=== PATIENT | male | born 1960 | race Caucasian/White ===

== ENCOUNTER 2020-12-31 20:24 | Inpatient (IN) | payer OTHER ==
[~2020-12-31] VITALS: Ht 177.8 cm; Wt 91.2 kg
[2020-12-31 20:24] VITALS: BP 122/49
[2020-12-31] MEDS ORDERED: CELEXA 10 MG TA10 M1 PO (20:27)
[2020-12-31] MEDS ORDERED: AMBIEN 10 MG TA10 MG PO (20:27)
[2020-12-31] MEDS ORDERED: HYTRIN 1 MG CAP1 MG PO (20:28)
[2020-12-31 21:00] LABS: ABSOLUTE LYMPHOCYTES 0.5 thou/uL (0.8-5.3); ABSOLUTE MONOCYTES 0.3 thou/uL (0.0-1.2); BASOPHILS 0.2 %; EOSINOPHILS 0.1 %; HEMATOCRIT 46.6 % (42.0-52.0); HEMOGLOBIN 16.6 gm/dL (14.0-18.0); LYMPHOCYTES 12.8 %; MCH 32.2 pg (26.0-34.0); MCHC 35.6 g/dL (28.0-37.0); MCV 90.6 fL (80.0-100.0); MONOCYTES 6.8 %; MPV 8.4 fl. (7.2-11.1); NUCLEATED RBCS 0 /100WBC; PLATELET COUNT* 105 thou/uL (150-400); POLYS 80.1 %; RBC 5.14 mil/uL (4.50-6.00); RDW-CV 13.6 % (10.5-14.5); WBC 3.8 thou/uL (4.0-11.0)
[2020-12-31 21:09] LABS: CALCIUM 8.5 mg/dL (8.5-10.1); CREATININE 1.6 mg/dL (0.6-1.3); POTASSIUM 3.3 mmol/L (3.5-5.1)
[2020-12-31 21:20] LABS: ALBUMIN 3.2 g/dL (3.4-5.0); TOTAL BILIRUBIN 0.4 mg/dL (<0.1-1.0); TOTAL PROTEIN 7.6 g/dL (6.4-8.2)
[2021-01-01] VITALS (8 sets, daily range): BP systolic 113–154; BP diastolic 67–87
[2021-01-01] MEDS ORDERED: SEROQUEL 25 MG25 M1 PO (05:11)
--- NOTE | 2021-01-01 05:37 | NUR ---
REPORT RECIEVED FROM ER. PT ORIENTED TO ROOM, CALL LIGHT SHOWN, FALL AGREEMENT WENT OVER, PT STATED UNDERSTANDING. ADMISSION DOCUMENTED. IV PATENT, FLUIDS INFUSING. FALL PRECAUTIONS IN PLACE. ISOLATION MAINTAINED. PT ABLE TO MAKE NEEDS KNOWN. WILL CONTINUE WITH PLAN OF CARE.
--- NOTE | 2021-01-01 09:24 | EKG ---
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: MS : [id number] Requested By: Aline Montero Order Number: [id number] MD: Mustapha Chairez Measurements Intervals Romeo Rate: 74 P: 34 MA: 193 QRS: -17 QRSD: 165 T: 33 QT: 341 QTc: 379 Interpretive Statements Sinus rhythm Baseline wander in lead(s) V6 No previous ECG available for comparison Electronically Signed On 01-01-2021 9:24:20 CDT by Mustapha Chairez [email or web address] <ELECTRONICALLY SIGNED> By: Mustapha Chairez MD, [facility] 01/01/21 0924 55 55 Mustapha Chairez MD, [facility] /EPI
--- NOTE | 2021-01-01 10:34 | NUR ---
CM ASSESSMENT: PT COVID POSITIVE (12/26/20) PRIOR TO ADMIT, AND CURRENTLY UNDER ENHANCED PRECAUTIONS. PT RESIDES AT HOME WITH FAMILY. PT INDEPENDENT WITH ADL'S, AND ACTIVE. PT USES 0 DME. PT HAS 0 HX OF HH OR SNF. PT CURRENTLY ON 2L O2, AND DID NOT HAVE HOME OXYGEN PRIOR TO ADMIT. D/C PLANNING NEEDS TBD AT THIS TIME. CM WILL REMAIN AVAILABLE TO ASSIST AND FOLLOW NEEDED.
[2021-01-01 14:19] LABS: ABSOLUTE LYMPHOCYTES 0.4 thou/uL (0.8-5.3); ABSOLUTE MONOCYTES 0.2 thou/uL (0.0-1.2); BASOPHILS 0.1 %; HEMATOCRIT 40.6 % (42.0-52.0); LYMPHOCYTES 10.8 %; MCH 31.9 pg (26.0-34.0); MCHC 34.9 g/dL (28.0-37.0); MCV 91.5 fL (80.0-100.0); MONOCYTES 5.2 %; MPV 8.4 fl. (7.2-11.1); NUCLEATED RBCS 0 /100WBC; PLATELET COUNT* 103 thou/uL (150-400); POLYS 83.9 %; RBC 4.44 mil/uL (4.50-6.00); RDW-CV 13.4 % (10.5-14.5); WBC 3.6 thou/uL (4.0-11.0)
[2021-01-01 14:20] LABS: HEMOGLOBIN 14.2 gm/dL (14.0-18.0)
[2021-01-01 14:31] LABS: ALBUMIN 2.5 g/dL (3.4-5.0); CALCIUM 7.6 mg/dL (8.5-10.1); CREATININE 1.2 mg/dL (0.6-1.3); POTASSIUM 3.5 mmol/L (3.5-5.1); TOTAL BILIRUBIN 0.4 mg/dL (<0.1-1.0); TOTAL PROTEIN 6.2 g/dL (6.4-8.2)
[2021-01-02] VITALS (8 sets, daily range): BP systolic 114–138; BP diastolic 60–84
[2021-01-02 03:50] LABS: HEMATOCRIT 39.9 % (42.0-52.0); HEMOGLOBIN 14.1 gm/dL (14.0-18.0); MCH 32.4 pg (26.0-34.0); MCHC 35.2 g/dL (28.0-37.0); MCV 91.9 fL (80.0-100.0); MPV 8.5 fl. (7.2-11.1); NUCLEATED RBCS 0 /100WBC; PLATELET COUNT* 101 thou/uL (150-400); RBC 4.34 mil/uL (4.50-6.00); RDW-CV 13.6 % (10.5-14.5); WBC 4.3 thou/uL (4.0-11.0)
[2021-01-02 04:06] LABS: ALBUMIN 2.5 g/dL (3.4-5.0); CALCIUM 7.6 mg/dL (8.5-10.1); CREATININE 1.1 mg/dL (0.6-1.3); MAGNESIUM 1.9 mg/dL (1.8-2.4); TOTAL BILIRUBIN 0.5 mg/dL (<0.1-1.0)
[2021-01-02 05:40] LABS: ABSOLUTE LYMPHOCYTES 0.3 thou/uL (0.8-5.3); ABSOLUTE MONOCYTES 0.1 thou/uL (0.0-1.2); ABSOLUTE NEUTROPHILS 3.9 thou/uL (1.6-8.1); ANISOCYTOSIS 1+; PLATELET ESTIMATE DECREASED; POIKILOCYTOSIS 1+
--- NOTE | 2021-01-02 05:54 | NUR ---
PT SLEPT ON AND OFF THIS SHIFT. ASSESSMENT DOCUMENTED. MEDS GIVEN PER E-MAR. IV PATENT, FLUIDS INFUSING. FALL PRECAUTIONS IN PLACE. TYLENOL GIVEN FOT TEMP. ISOLATION MAINTAINED. PT ABLE TO MAKE NEEDS KNOWN. WILL CONTINUE WITH PLAN OF CARE.
--- NOTE | 2021-01-02 13:30 | NUR ---
PATIENT NEED FOR OXYGEN SUPPLEMT INCREASED DURING SHIFT. MD REQUESTED TRANSFER TO ICU AND TO START BIPAP. PATIENT TRANSFER TO ICU AFTER REPORT CALLED IN STABLE CONIDTION.
[2021-01-02 14:26] LABS: BE 1.2 mmol/L (-2 to +3); PCO2 36.4 mmHg (35.0-45.0); PO2 60.2 mmHg (75.0-100.0); pH 7.452 (7.340-7.450)
--- NOTE | 2021-01-02 14:58 | NUR ---
PLAN OF CARE: PHYSICIAN INFORMS OF PLAN FOR THE PT TO TX TO ICU TODAY, THE PT HAS HAD A CHANGE IN STATUS AND REQUIRES NEGATIVE PRESSURE ROOM D/T NEEDING BIPAP. PT IS COVID POSITIVE AND REMAINS UNDER ENHANCED PRECAUTIONS. CM WILL REMAIN AVAILABLE TO ASSIST AND FOLLOW NEEDED.
[2021-01-02 17:23] LABS: CALCIUM 7.9 mg/dL (8.5-10.1); CREATININE 1.3 mg/dL (0.6-1.3); MAGNESIUM 1.8 mg/dL (1.8-2.4); POTASSIUM 3.8 mmol/L (3.5-5.1)
[2021-01-03] VITALS (26 sets, daily range): BP systolic 84–138; BP diastolic 37–96
--- NOTE | 2021-01-03 04:33 | NUR ---
ASSUMED CARE AT 1900H, ON BIPAP AT 30% AND TOLERATED. PUT ON NC AT 15LPM WHILE EATING. ON PRECEDEX AND TITRATED. PT WAS ANXIOUS AND HAD PANIC ATTACK EVERYTIME BIPAP MASK PUT ON. EXPALINED TO HIM THAT HE NEEDS TO WEAR THE BIPAP. 02 SAT DECREASED AND CHANGE NC TO HEATED HIFLOW AT 55LPM 100%. 2 CON PLASMA GIVEN WITH NO REACTION. CONTINUE MONITORING AND TOWARDS GOALS.
--- NOTE | 2021-01-03 07:46 | NUR ---
OFFERED TO UPDATE FAMILY, PATIENT STATES HE TEXTED THEM. ENCOURAGED PRONE POSITIONING AND ASSISTED IN THAT POSITION AND KEEPING BIPAP ON. BRIEF DRINK OFFERED PRIOR TO PRONING. OFF BIPAP LESS THAN 45 SECONDS; DESAT TO 75%. RECOVERED <1 MINUTE >90% SPO2.
[2021-01-03 08:16] LABS: CALCIUM 8.1 mg/dL (8.5-10.1); CREATININE 1.1 mg/dL (0.6-1.3); POTASSIUM 3.9 mmol/L (3.5-5.1)
--- NOTE | 2021-01-03 10:30 | NUR ---
Spoke to son Tenzin over the phone. Tenzin is DPOA ([phone]) and plans to bring paperwork up to hospital to place on file. Called son due to patient being in COVID 19 isolation. Patient is currently on Bipap at 100% FiO2 for increased SOA and remdesevir has been ordered. Patient is from home and lives with his daughter, son and a family friend (sleeps in RV outside). House is wheelchair accessible due to 's recent health decline. Patient's recently on hospice a few months ago. Prior to admission patient was independent with ADLs and was driving and working. No hx of HH, SNF/Rehab, DME, O2, BHS, dialysis or infusion therapy, Goal is to return home at discharge. Patient may need O2 at discharge. Son made aware of possibility. CM to continue to follow for safe dc planning
--- NOTE | 2021-01-03 12:56 | NUR ---
PATIENT C/O BURNING ALL OVER, NOT "QUITE ITCHING" BUT REQUESTS BENADRYL. DR. LITTLE NOTIFIED. ORDERS RECEIVED.
--- NOTE | 2021-01-03 14:52 | NUR ---
RIGHT BASILIC VESSEL ACCESED FOR 5 [place] TRIPLE LUMEN PICC. LINE PRETRIMMED TO 45CM AND ADVANCED TO THE ZERO DWIGHT WITH NO RESISTANCE MET. UPPER ARM CIRCUMFERENCE ABOVE INSERTION SITE= 12 1/2". SHERLOCK MAGNET AND 3CG CONFIRMATION OF TIP TERMINATION AT THE CAVOATRIAL JUCNTION APPRECIATED. GUIDE WIRE REMOVED, LINE FLUSHED AND INSERTION SITE DRESSED. REPORT GIVEN TO COURTNEY NGUYEN.
--- NOTE | 2021-01-03 15:00 | NUR ---
PATIENT REMOVED BIPAP TO PUT UNDERWEAR ON. DESATED TO 54%, PLACED BACK ON BIPAP. THERAPEUTIC COMMUNICATION. PATIENT DID BECOME MORE BRADYCARDIC DURING THIS EPISODE, GOING DOWN TO 37. MAINTAINED PULSE AND CONSCIOUSNESS. PATIENT EDUCATED TO ASK FOR ASSISTANCE.
--- NOTE | 2021-01-03 17:30 | NUR ---
PATIENT NOT PROGRESSING TOWARDS GOALS. THIS AM ABLE TO DO HHF WHEN ON THE SIDE OF BED IN TRIPOD POSITION AND WHEN UP IN CHAIR. HOWEVER, HE WAS NOT ABLE TO USE HHF IN BED, ONLY BIPAP. THIS AFTERNOON, PRIOR TO DESATURATION EPISODE, UNABLE TO USE HHF EVEN WHEN IN CHAIR WITHOUT DESATURATING. PLACED ON BIPAP AND HAS REMAINED MOSTLY ON BIPAP WITH A FEW BREAKS TO HHF. HE DOES NOT MAINTAIN SATS >[address] LITTLE AWARE OF NEED TO BE ON BIPAP NOW AND DESATURATION EPISODE. MULTIPLE ORDERS RECEIVED. PATIENT REQUIRES A LOT OF THERAPEUTIC COMMUNICATION FOR HIS ANXIETY. XANAX GIVEN THIS AFTERNOON AFTER DESATURATION WITH SOME IMPROVEMENT IN ANXIETY.
[2021-01-04] VITALS (9 sets, daily range): BP systolic 102–123; BP diastolic 51–69
[2021-01-04 04:54] LABS: ABSOLUTE LYMPHOCYTES 0.3 thou/uL (0.8-5.3); ABSOLUTE MONOCYTES 0.2 thou/uL (0.0-1.2); ABSOLUTE NEUTROPHILS 6.1 thou/uL (1.6-8.1); BASOPHILS 0.2 %; HEMOGLOBIN 14.6 gm/dL (14.0-18.0); LYMPHOCYTES 4.7 %; MCH 32.1 pg (26.0-34.0); MCHC 35.7 g/dL (28.0-37.0); MCV 90.1 fL (80.0-100.0); MONOCYTES 3.2 %; MPV 9.5 fl. (7.2-11.1); NUCLEATED RBCS 0 /100WBC; PLATELET COUNT* 126 thou/uL (150-400); POLYS 91.9 %; RBC 4.55 mil/uL (4.50-6.00); RDW-CV 13.4 % (10.5-14.5); WBC 6.6 thou/uL (4.0-11.0)
[2021-01-04 05:09] LABS: CALCIUM 8.3 mg/dL (8.5-10.1); CREATININE 1.2 mg/dL (0.6-1.3); MAGNESIUM 2.4 mg/dL (1.8-2.4); POTASSIUM 3.6 mmol/L (3.5-5.1); TOTAL BILIRUBIN 0.9 mg/dL (<0.1-1.0); TOTAL PROTEIN 6.8 g/dL (6.4-8.2)
[2021-01-05] VITALS (22 sets, daily range): BP systolic 59–156; BP diastolic 31–88
--- NOTE | 2021-01-05 05:17 | NUR ---
ASSUMED CARE AT 1900H, ON BIPAP AT 100% AND TOLERATED. NO FEVER AND NO DISTRESS. STILL BRADYCARDIC WITH OFTEN PAUSES. PT SLEPT WELL IN MY SHIFT. EARLY THIS MORNING, HE WANTED TO BE IN HEATED HIFLOW BUT NOT TOLERATING IT. BACK TO BIPAP. CONTINUE MONITROING AND TOWARDS GOALS.
[2021-01-05 06:30] LABS: HEMATOCRIT 39.9 % (42.0-52.0); HEMOGLOBIN 14.2 gm/dL (14.0-18.0); MCHC 35.6 g/dL (28.0-37.0); MCV 89.9 fL (80.0-100.0); MPV 8.7 fl. (7.2-11.1); NUCLEATED RBCS 0 /100WBC; PLATELET COUNT* 130 thou/uL (150-400); RBC 4.44 mil/uL (4.50-6.00); RDW-CV 13.1 % (10.5-14.5); WBC 8.4 thou/uL (4.0-11.0)
[2021-01-05 06:41] LABS: ALBUMIN 2.7 g/dL (3.4-5.0); CALCIUM 7.9 mg/dL (8.5-10.1); CREATININE 1.1 mg/dL (0.6-1.3); POTASSIUM 4.3 mmol/L (3.5-5.1); TOTAL BILIRUBIN 1.2 mg/dL (<0.1-1.0); TOTAL PROTEIN 6.1 g/dL (6.4-8.2)
[2021-01-05 08:21] LABS: ABSOLUTE LYMPHOCYTES 0.5 thou/uL (0.8-5.3); ABSOLUTE NEUTROPHILS 7.9 thou/uL (1.6-8.1)
[2021-01-05 08:22] LABS: PLATELET ESTIMATE ADEQUATE
[2021-01-06] VITALS (20 sets, daily range): BP systolic 99–183; BP diastolic 62–130
[2021-01-06 03:37] LABS: ABSOLUTE LYMPHOCYTES 0.2 thou/uL (0.8-5.3); ABSOLUTE MONOCYTES 0.2 thou/uL (0.0-1.2); BASOPHILS 0.2 %; HEMATOCRIT 41.3 % (42.0-52.0); HEMOGLOBIN 14.9 gm/dL (14.0-18.0); LYMPHOCYTES 1.9 %; MCH 32.3 pg (26.0-34.0); MCV 89.7 fL (80.0-100.0); MONOCYTES 1.8 %; MPV 8.5 fl. (7.2-11.1); NUCLEATED RBCS 0 /100WBC; PLATELET COUNT* 121 thou/uL (150-400); POLYS 96.1 %; RBC 4.61 mil/uL (4.50-6.00); RDW-CV 13.1 % (10.5-14.5); WBC 10.4 thou/uL (4.0-11.0)
[2021-01-06 04:18] LABS: ALBUMIN 2.8 g/dL (3.4-5.0); POTASSIUM 4.5 mmol/L (3.5-5.1); TOTAL BILIRUBIN 1.2 mg/dL (<0.1-1.0)
--- NOTE | 2021-01-06 10:13 | NUR ---
ICU Rounds: Patient currently on heated hi-flow at 55L (100% FiO2). Bipap at HS. Continue abx. CM to continue to follow
[2021-01-07] VITALS (23 sets, daily range): BP systolic 87–155; BP diastolic 43–86
--- NOTE | 2021-01-07 02:16 | NUR ---
ASSUMED PATIENT CARE AT 1900. ASSESSMENT COMPLETED CHARTED. CARDIAC MONITORING IN PLACE. PATIENT REPORT GIVEN TO PATRICK BRIAN AT 2340.
[2021-01-07 04:34] LABS: CALCIUM 8.2 mg/dL (8.5-10.1); CREATININE 1.2 mg/dL (0.6-1.3); POTASSIUM 4.2 mmol/L (3.5-5.1)
[2021-01-07 04:49] LABS: HEMATOCRIT 43.4 % (42.0-52.0); HEMOGLOBIN 15.2 gm/dL (14.0-18.0); MCH 31.5 pg (26.0-34.0); MCHC 35.1 g/dL (28.0-37.0); MCV 89.7 fL (80.0-100.0); MPV 9.6 fl. (7.2-11.1); RBC 4.84 mil/uL (4.50-6.00); RDW-CV 13.1 % (10.5-14.5)
--- NOTE | 2021-01-07 06:07 | NUR ---
ASSUMED PT CARE AT APPROX. 2340. PT IS ON ENHANCED PRECAUTIONS FOR COVID+. PT IS A/OX4. IT WAS REPORTED PT IS DEPRESSED D/T 2 MONTHS AGO. PT IS TRACING SB ON CERTIFIED PHARMACIST ASSISTANT. PT IS ON BIPAP AT [facility]. SEE CHART FOR SETTINGS. PT DESATS WHEN OXYGEN IS REMOVED. PER RT PT REQUESTED TO REMOVE BIPAP AND GO BACK ON HHFNC. PT O2 SATS DROPPED TO LOW 80'S. RN EDUCATED PT ABOUT OXYGENATION. PT AGREED TO PUT BIPAP BACK ON. PT O2 SATS RANGED 90-94%. PT CURRENTLY ASLEEP IN BED. NO C/O VOICED. ASSESSMENTS COMPLETE CHARTED. MEDICATIONS ADMINISTERED PRESCRIBED. FALL PRECAUTIONS IN PLACE FOR SAFETY. WILL CONT. TO MONITOR.
--- NOTE | 2021-01-07 15:18 | NUR ---
PLAN OF CARE IS FOR PT TO CONT ON BROVANA, BIPAP PRN TO HELP MAINTAIN O2 STATS. CHEST XRAY TODAY.
--- NOTE | 2021-01-07 19:37 | NUR ---
PT DESATS WHEN LAYING DOWN IN THE BED, ENCOURAGED MOBILITY AND INCENTIVE SPIROMETRY. SAT IN THE CHAIR FOR MOST PART OF THE DAY. C/O BACKPAIN, NORCO ADDED PER ORDER, PAIN PARTIALLY RELIEVED. TOLERATING DIET. VOIDING PER URINAL AND BSC.
[2021-01-08] VITALS (22 sets, daily range): BP systolic 94–177; BP diastolic 50–100
[2021-01-08 06:03] LABS: HEMATOCRIT 41.3 % (42.0-52.0); HEMOGLOBIN 14.8 gm/dL (14.0-18.0); MCH 31.8 pg (26.0-34.0); MCHC 35.9 g/dL (28.0-37.0); MCV 88.7 fL (80.0-100.0); MPV 9.1 fl. (7.2-11.1); NUCLEATED RBCS 0 /100WBC; PLATELET COUNT* 103 thou/uL (150-400); RBC 4.65 mil/uL (4.50-6.00); RDW-CV 13.1 % (10.5-14.5); WBC 9.9 thou/uL (4.0-11.0)
[2021-01-08 06:42] LABS: ALBUMIN 3.4 g/dL (3.4-5.0); CALCIUM 8.3 mg/dL (8.5-10.1); CREATININE 0.9 mg/dL (0.6-1.3); MAGNESIUM 2.5 mg/dL (1.8-2.4); POTASSIUM 4.4 mmol/L (3.5-5.1); TOTAL BILIRUBIN 1.2 mg/dL (<0.1-1.0)
[2021-01-08 08:09] LABS: ABSOLUTE LYMPHOCYTES 0.2 thou/uL (0.8-5.3); ABSOLUTE MONOCYTES 0.2 thou/uL (0.0-1.2); ABSOLUTE NEUTROPHILS 9.5 thou/uL (1.6-8.1); PLATELET ESTIMATE ADEQUATE
--- NOTE | 2021-01-08 13:46 | NUR ---
ICU Rounds: Patient remains in COVID-19 isolation. Currently on 55L high flow NC (100% FiO2). Bipap at HS prn. Steroid taper. PT and OT ordered today. CM to continue to follow for safe dc planning
--- NOTE | 2021-01-08 18:09 | NUR ---
THIS TAP DANCER ASSUMED CARE OF PT AT 0700 PT PROGRESSED TOWARD GOAL UP TO RECLINER ABLE TO STAY OFF OF BIPAP ALL DAY ON HEATED HIGH FLOW STARTING AT 55L 100% TITRATED DOWN THROUGHOUT SHIFT 55L 85% TOLERATING WELL PT ENCOURAGED FOR ACTIVITIES AND REASSURED THAT HE IS PROGRESSIVLEY GETTING BETTER PT STATED "IT GETS LONELY AND I JUST WANT SOMEONE TO TALK WITH.: THIS TAP DANCER TOOK EXTRA TIME TO SPEND WITH PT HE WAS GRATEFUL. FRIEND DROPPED OFF SOME BELONGINGS PAIN MEDICATION GIVEN DO TO BACK AND BUTT PAIN
--- NOTE | 2021-01-08 22:13 | CON ---
[address] [address] CONSULTATION Name: DOUGSHANIQUA D Room: [address] IN M.R.#: [id number] Admission: 01/01/21 Attend Phys: Radha Larry MD Discharge: Date of : 62 Report #: [id number] THIS REPORT FOR: cc: Kush Mendoza Ghaison F. DO Pervez, Adeel MD ~ DOC #: [id number] Rik Lott MD DATE OF CONSULTATION: 01/01/2021 REQUESTING PHYSICIAN: Fabiano Boyd MD INDICATION FOR CONSULTATION: COVID-19. HISTORY OF PRESENT ILLNESS: A 60-year-old gentleman. He is a lifetime nonsmoker and does not have a history of a cardiac or respiratory disease. The patient, however, did tell me that he takes prescribed narcotics at home for various pain complaints, although this is not listed on his home medication list. The patient also takes Seroquel as well as zolpidem to help him sleep at night. He is overweight with a body mass index of 30.1. The patient is now admitted with increasing shortness of breath, cough as well as a fever. He says he has also been having chest pain. Chest pain has been associated with tightness in the chest at times. He does not have swelling of lower extremities. He does not have calf pain. He does state that he is having increasing anxiety and various pain complaints. He does have frequency of micturition, which is at baseline. The patient has a longstanding history of insomnia as well as daytime sleepiness. REVIEW OF SYSTEMS: The patient's review of systems for 12 points is negative except as mentioned above. PAST MEDICAL HISTORY: Anxiety, insomnia, use of narcotics for pain of various pain complaints, appendectomy. SOCIAL HISTORY: Lifetime nonsmoker. Only occasional alcohol use. No known history of illegal drug use. CURRENT MEDICATIONS: List in [employer] reviewed. HOME MEDICATIONS: The list, also in [employer] reviewed. In addition to zolpidem and Seroquel as well as Celexa and terazosin, which are listed on the record, he says he also takes narcotic pills for pain control at times. It is not known to me how often [place] [address] CONSULTATION Name: SHANIQUA CAMACHO Room: [address]#: [id number] Admission: 01/01/21 Attend Phys: Radha Larry MD Discharge: Date of : 62 Report #: [id number] FAMILY HISTORY: No pertinent family history known at this time. PHYSICAL EXAMINATION: GENERAL: He is alert, awake and oriented, appears to be very anxious, though. VITAL SIGNS: Has a pulse of 60 and a blood pressure of 146/83, saturating 93%. He is on 2 liters nasal cannula. Respiratory rate is mildly elevated to 20. His temperature is 37.2, but he had a high-grade fever of 38.4 yesterday. Body mass index is 30.1. HEENT: Head is normocephalic and atraumatic. Pupils are equal and reactive. There is no throat erythema. Narrow airway close to being class 4. NECK: Does not show raised JVP asymmetry, mass or lymph nodes. CHEST: Symmetrical expansion on inspection and palpation. On auscultation, breath sounds are bilaterally equal, but decreased. I do not hear any added sounds. HEART: Regular. There is no murmur. ABDOMEN: Soft and nontender. EXTREMITIES: Lower extremities show no edema and no calf tenderness. SKIN: Dry and intact. NEUROLOGIC: He does move all extremities bilaterally equally and spontaneously with no focal deficit identified. LABORATORY DATA: The patient's chest x-ray from yesterday, which does show interstitial infiltrates consistent with COVID-19 in [facility] reviewed. The patient's lab work was significant for leukopenia as well as a mild thrombocytopenia in [facility] reviewed. Initially, he also was in acute renal failure with a creatinine of 1.6. This has improved to 1.2. His D-dimer was elevated to 0.64. ASSESSMENT AND PLAN: 1. Acute hypoxemic respiratory failure secondary to COVID-19. We will watch his O2 saturations very closely. If there is a worsening oxygen needs and I will have a very low threshold of transferring him to a negative pressure room for the administration of BiPAP, in that case, we will also consider breathing treatments. He is on albuterol inhaler. He is very anxious at this time and anxiety may increase if we place him on BiPAP tonight. Therefore, for now, I did not order the same. 2. COVID-19. I will continue with dexamethasone. Considering that he has had significant issues with anxiety and insomnia, it may be desirable keep the dexamethasone on the lower side. Also, I note that he has mild leukopenia as well as mild thrombocytopenia, which are poor prognostic signs and he says that his shortness of breath, in fact, has worsened significantly since he was admitted. It is for this reason that I would go ahead and request Actemra. I understand that we are out of Actemra this evening and he will receive it tomorrow morning. I am also inclined to go ahead and give him convalescent [facility] [address] [place] [address] CONSULTATION Name: SHANIQUA CAMACHO Room: [address] IN .R.#: [id number] Admission: 01/01/21 Attend Phys: Radha Lrary MD Discharge: Date of : 62 Report #: [id number] plasma 3. Lung Infiltrates On Doxycycline 4. Thromobocytopenia + Leucopenia Still Prophy dose Lovenox, but watch Platelets Rik Lott MD AP/AVR/SOT <ELECTRONICALLY SIGNED> By: Rik Lott MD 01/08/21 2213 1744 [id number] Lott MD /nt
[2021-01-09] VITALS (11 sets, daily range): BP systolic 93–147; BP diastolic 55–102
[2021-01-09 06:18] LABS: HEMATOCRIT 41.8 % (42.0-52.0); MCH 32.1 pg (26.0-34.0); MCHC 35.7 g/dL (28.0-37.0); MCV 89.8 fL (80.0-100.0); MPV 9.3 fl. (7.2-11.1); RBC 4.66 mil/uL (4.50-6.00); RDW-CV 13.3 % (10.5-14.5); WBC 10.9 thou/uL (4.0-11.0)
[2021-01-09 06:27] LABS: CALCIUM 8.2 mg/dL (8.5-10.1); POTASSIUM 4.1 mmol/L (3.5-5.1)
--- NOTE | 2021-01-09 14:10 | NUR ---
PT TRANSFERED FROM ICU TO ROOM 106. A&OX 4, PWD. HEATED HIGH FLOW 02 95% 55L. SITTING UP IN CHAIR.
--- NOTE | 2021-01-09 14:14 | NUR ---
PT TRANSFERRED TO ROOM 106 VIA WHEELCHAIR WITH NURSING STAFF AND RT ALL BELONGINGS PACKED AND SENT WITH PATIENT
--- NOTE | 2021-01-09 19:37 | NUR ---
A&OX 4, PWD. LUNGS DIMINISHED AND SLIGHT RALES IN BASES. ON HHF 02 55L 95%. SAT UP IN CHAIR FROM 1410 UNTIL 1830 THEN WENT BACK TO BED. SB/SR ON MONITOR. AFEBRILE. LAST BM TODAY. USING URINAL WITHOUT DIFFICULTY. TRIPLE LUMEN RIGHT UPPER ARM SL INTACT AND PATENT. DID HAVE SNACK OF SHERBET AFTER ARRIVING TO FLOOR. NO C/O. WILL CONTINUE TO MONITOR.
--- NOTE | 2021-01-09 23:13 | NUR ---
ASSUMED CARE OF PT AT 1900. PT IS ALERT AND ORIENTED. VSS. PERRLA. PT IS TOLERATING BIPAP WELL AT THIS TIME. PT IS IN SINUS RYTHM ON THE TELEMETRY. PT IS RESTING COMFORTABLY IN BED. RESPIRATIONS ARE EVEN AND NONLABORED. WILL CONTINUE TO MONITOR PT.
[2021-01-10 04:03] VITALS: BP 140/78
[2021-01-10 06:06] LABS: HEMATOCRIT 40.9 % (42.0-52.0); HEMOGLOBIN 14.3 gm/dL (14.0-18.0); MCH 31.3 pg (26.0-34.0); MCHC 34.9 g/dL (28.0-37.0); MCV 89.5 fL (80.0-100.0); MPV 9.6 fl. (7.2-11.1); RBC 4.57 mil/uL (4.50-6.00); RDW-CV 13.4 % (10.5-14.5); WBC 10.3 thou/uL (4.0-11.0)
[2021-01-10 06:13] LABS: CALCIUM 8.2 mg/dL (8.5-10.1); POTASSIUM 4.4 mmol/L (3.5-5.1)
[2021-01-10 09:50] VITALS: BP 101/64
--- NOTE | 2021-01-10 13:10 | NUR ---
Nutrition: Pt admitted with COVID. Assessed for LOS. Wt: 205#. Eating well. Tolerating bipap. BG 121, alb 3.4, prealb 41.2. No nutrition concerns at this time. Low risk.
--- NOTE | 2021-01-10 15:53 | NUR ---
PLAN OF CARE: PHYSICIAN INFORMS OF PLAN FOR PT TO REMAIN INPT THRU THE WEEKEND. PT REMAINS ON BIPAP 55L O2 AND 100% FIO2. CM D/C PLANNING NEEDS TBD AT THIS TIME. CM WILL REMAIN AVAILABLE TO ASSIST AND FOLLOW NEEDED.
[2021-01-10 16:00] VITALS: BP 141/75
[2021-01-10 20:00] VITALS: BP 119/73
[2021-01-11] VITALS: BP 121/77
[2021-01-11 04:00] VITALS: BP 125/77
[2021-01-11 06:42] LABS: HEMATOCRIT 41.4 % (42.0-52.0); HEMOGLOBIN 14.5 gm/dL (14.0-18.0); MCH 31.5 pg (26.0-34.0); MCHC 35.1 g/dL (28.0-37.0); MCV 89.9 fL (80.0-100.0); MPV 9.1 fl. (7.2-11.1); RBC 4.61 mil/uL (4.50-6.00); RDW-CV 13.5 % (10.5-14.5); WBC 9.8 thou/uL (4.0-11.0)
--- NOTE | 2021-01-11 07:00 | NUR ---
CHANGE OF SHIFT REPORT GIVEN PATIENT SEEN RESTING IN BED ASSUMED PATIENT CARE
[2021-01-11 07:14] LABS: CALCIUM 8.1 mg/dL (8.5-10.1); POTASSIUM 4.5 mmol/L (3.5-5.1)
[2021-01-11 07:20] VITALS: BP 117/76
[2021-01-11 12:00] VITALS: BP 117/76
[2021-01-11 16:00] VITALS: BP 120/70
[2021-01-11 20:00] VITALS: BP 124/84
[2021-01-12] VITALS (33 sets, daily range): BP systolic 88–132; BP diastolic 53–80
[2021-01-12 05:54] LABS: HEMATOCRIT 41.1 % (42.0-52.0); HEMOGLOBIN 14.4 gm/dL (14.0-18.0); MCH 31.5 pg (26.0-34.0); MCHC 35.1 g/dL (28.0-37.0); MCV 89.8 fL (80.0-100.0); MPV 9.3 fl. (7.2-11.1); NUCLEATED RBCS 0 /100WBC; PLATELET COUNT* 54 thou/uL (150-400); RBC 4.58 mil/uL (4.50-6.00); RDW-CV 13.5 % (10.5-14.5); WBC 10.5 thou/uL (4.0-11.0)
[2021-01-12 06:10] LABS: ALBUMIN 2.9 g/dL (3.4-5.0); MAGNESIUM 2.2 mg/dL (1.8-2.4); POTASSIUM 4.3 mmol/L (3.5-5.1); TOTAL BILIRUBIN 1.1 mg/dL (<0.1-1.0); TOTAL PROTEIN 5.9 g/dL (6.4-8.2)
--- NOTE | 2021-01-12 07:15 | NUR ---
CHANGE OF SHIFT REPORT GIVEN PATIENT SEEN AT BEDSIDE, IN BED ASLEEP WITH BIPAP ON ASSUMED PATIENT CARE
[2021-01-12 08:25] LABS: ABSOLUTE EOSINOPHILS 0.2 thou/uL (0.0-0.7); ABSOLUTE LYMPHOCYTES 0.1 thou/uL (0.8-5.3); ABSOLUTE MONOCYTES 0.1 thou/uL (0.0-1.2); ABSOLUTE NEUTROPHILS 10.1 thou/uL (1.6-8.1); PLATELET ESTIMATE ADEQUATE
--- NOTE | 2021-01-12 13:10 | NUR ---
nurse notified by pvc monitor patient o2 saturation was 22% bullet lubricant mixer and rn to rm patient nonresponsive and had disconnected bipap mask hose from bipap unit bipap reconnected patient still nonresponsive and diaphoretic rr called at 1312 vital signs taken at 1318 b/p 240/132 hr 45 r 38 76% bipap safety supervisor, er dr and rt to o2 sats still low in 70s prepare to intubate medications given per dr orders intubated at 1331 vital signs taken at 1337 123/83 hr 102 r 33 59% intubated ramos catheter placed and ngt placed and 1l ns hung wo patient transferred via bed to icu and persfela hernandez sent report given to agricultural produce sorter eduardo conde called and son dallas notified of transfer to icu
[2021-01-12 16:18] LABS: ABSOLUTE EOSINOPHILS 0.1 thou/uL (0.0-0.7); ABSOLUTE LYMPHOCYTES 0.1 thou/uL (0.8-5.3); ABSOLUTE MONOCYTES 0.2 thou/uL (0.0-1.2); ABSOLUTE NEUTROPHILS 13.5 thou/uL (1.6-8.1); BASOPHILS 0.2 %; EOSINOPHILS 0.6 %; HEMOGLOBIN 14.5 gm/dL (14.0-18.0); LYMPHOCYTES 0.6 %; MCH 31.9 pg (26.0-34.0); MCHC 34.5 g/dL (28.0-37.0); MCV 92.6 fL (80.0-100.0); MONOCYTES 1.3 %; NUCLEATED RBCS 0 /100WBC; PLATELET COUNT* 51 thou/uL (150-400); POLYS 97.3 %; RBC 4.53 mil/uL (4.50-6.00); RDW-CV 13.8 % (10.5-14.5); WBC 13.8 thou/uL (4.0-11.0)
[2021-01-12 16:25] LABS: URINE BILIRUBIN NEGATIVE (Negative); URINE BLOOD 3+ (Negative); URINE CLARITY CLEAR; URINE COLOR YELLOW; URINE GLUCOSE-RANDOM NEGATIVE (Negative); URINE KETONES NEGATIVE (Negative); URINE LEUKOCYTES-REFLEX NEGATIVE (Negative); URINE NITRITE-REFLEX NEGATIVE (Negative); URINE PROTEIN TRACE (Negative); URINE SPECIFIC GRAVITY >= 1.030 (1.005-1.030); URINE UROBILINOGEN 0.2 E.U./dl (0.2-1.0)
[2021-01-12 16:30] LABS: AMORPHOUS URATES Many /LPF (None Seen); CASTS None Seen /LPF (None Seen); CRYSTALS None Seen /LPF (None Seen); SQUAMOUS 0-3 Few /LPF (0-3); URINE RBC 0-2 Rare /HPF (0-2); URINE WBC-REFLEX 6-15 Few /HPF (0-5)
[2021-01-12 16:31] LABS: APTT 23.4 Seconds (25.0-31.3); INR 1.3; PROTIME 13.4 Seconds (9.20-11.50)
[2021-01-12 17:00] LABS: BE -4.7 mmol/L (-2 to +3); PCO2 41.2 mmHg (35.0-45.0); PO2 79.6 mmHg (75.0-100.0); pH 7.325 (7.340-7.450)
[2021-01-12 17:08] LABS: ALBUMIN 2.8 g/dL (3.4-5.0); CALCIUM 7.8 mg/dL (8.5-10.1); CREATININE 1.2 mg/dL (0.6-1.3); POTASSIUM 4.9 mmol/L (3.5-5.1); TOTAL BILIRUBIN 1.1 mg/dL (<0.1-1.0)
--- NOTE | 2021-01-12 20:33 | NUR ---
PT RECEIVED FROM S AT 1400, VENTED WITH FIO2 100%. SEDATION INITIATED WITH PROPOFOL AND FENTANYL GTTs. LEVOPHED STARTED TO KEEP MAP> 65. DTR UPDATED.
[2021-01-12 20:42] LABS: CALCIUM 7.9 mg/dL (8.5-10.1); CREATININE 1.2 mg/dL (0.6-1.3); POTASSIUM 5.3 mmol/L (3.5-5.1)
[2021-01-13] VITALS (38 sets, daily range): BP systolic 108–154; BP diastolic 52–78
[2021-01-13 06:23] LABS: ABSOLUTE LYMPHOCYTES 0.1 thou/uL (0.8-5.3); ABSOLUTE MONOCYTES 0.2 thou/uL (0.0-1.2); ABSOLUTE NEUTROPHILS 10.8 thou/uL (1.6-8.1); BASOPHILS 0.1 %; HEMATOCRIT 35.8 % (42.0-52.0); MCH 31.7 pg (26.0-34.0); MCHC 34.5 g/dL (28.0-37.0); MCV 91.7 fL (80.0-100.0); MONOCYTES 2.1 %; MPV 9.6 fl. (7.2-11.1); NUCLEATED RBCS 0 /100WBC; PLATELET COUNT* 52 thou/uL (150-400); POLYS 96.8 %; RDW-CV 13.9 % (10.5-14.5); WBC 11.1 thou/uL (4.0-11.0)
[2021-01-13 06:38] LABS: HEMOGLOBIN 12.4 gm/dL (14.0-18.0)
[2021-01-13 06:39] LABS: ALBUMIN 3.6 g/dL (3.4-5.0); CALCIUM 8.2 mg/dL (8.5-10.1); CREATININE 1.1 mg/dL (0.6-1.3); MAGNESIUM 2.7 mg/dL (1.8-2.4); PHOSPHORUS* 4.1 mg/dL (2.5-4.9); POTASSIUM 4.6 mmol/L (3.5-5.1); TOTAL BILIRUBIN 1.3 mg/dL (<0.1-1.0); TOTAL PROTEIN 6.2 g/dL (6.4-8.2)
--- NOTE | 2021-01-13 07:41 | NUR ---
ASSUMED PATIENT CARE AT 1900. ASSESSMENTS COMPLETED CHARTED. CARDIAC MONITORING IN PLACE. HOURLY ROUNDING IN PLACE FOR PATIENT SAFETY. FALL PRECAUTIONS IN PLACE FOR PATIENT SAFETY. BED LOCKED AND IN LOWEST POSITION.
--- NOTE | 2021-01-13 10:03 | NUR ---
ICU Rounds: Patient intubataed 01/12 due to increased O2 needs. Vent (100% FiO2 and peep 14). Sedation, propofol and fent gtt in place.
[2021-01-13 11:43] LABS: BE -2.8 mmol/L (-2 to +3); PCO2 44.4 mmHg (35.0-45.0); pH 7.334 (7.340-7.450)
[2021-01-13 11:44] LABS: PO2 59.8 mmHg (75.0-100.0)
[2021-01-13 17:08] LABS: BE -6.3 mmol/L (-2 to +3); PCO2 42.3 mmHg (35.0-45.0); PO2 64.7 mmHg (75.0-100.0)
[2021-01-13 17:14] LABS: pH 7.291 (7.340-7.450)
[2021-01-13 17:45] LABS: CALCIUM 8.2 mg/dL (8.5-10.1); CREATININE 1.1 mg/dL (0.6-1.3); MAGNESIUM 2.7 mg/dL (1.8-2.4); POTASSIUM 4.9 mmol/L (3.5-5.1)
--- NOTE | 2021-01-13 20:03 | NUR ---
NO TUBE FEEDINGS FOR TODAY PER DR LITTLE. PT SATTING HIGH 80s TO LOW 90s WITH MAXED PROPOFOL, VERSED AND FENT GTTs. VEC 10 MG GIVEN x2 AT THE END OF THE SHIFT, PLAN TO START NIMBEX GTT AND PRONE AT NIGHT. ART LINE INSERTED THIS AM, LEVOPHED TURNED OFF AT 1252. CHILDREN UPDATED OVER THE PHONE. ALL HIS BELONGINGS TAKEN BY FAMILY (ULI).
[2021-01-13 20:31] LABS: BE -3.4 mmol/L (-2 to +3)
[2021-01-13 20:33] LABS: PCO2 50.1 mmHg (35.0-45.0); pH 7.291 (7.340-7.450)
[2021-01-13 20:34] LABS: PO2 131.5 mmHg (75.0-100.0)
[2021-01-14] VITALS (34 sets, daily range): BP systolic 110–199; BP diastolic 54–96
[2021-01-14 05:55] LABS: APTT 23.7 Seconds (25.0-31.3); INR 1.4; PROTIME 14.5 Seconds (9.20-11.50)
[2021-01-14 06:04] LABS: ABSOLUTE LYMPHOCYTES 0.1 thou/uL (0.8-5.3); ABSOLUTE MONOCYTES 0.1 thou/uL (0.0-1.2); ABSOLUTE NEUTROPHILS 7.8 thou/uL (1.6-8.1); BASOPHILS 0.4 %; EOSINOPHILS 0.1 %; HEMATOCRIT 35.7 % (42.0-52.0); HEMOGLOBIN 12.1 gm/dL (14.0-18.0); MCH 31.9 pg (26.0-34.0); MCV 93.9 fL (80.0-100.0); MONOCYTES 1.5 %; MPV 10.3 fl. (7.2-11.1); NUCLEATED RBCS 0 /100WBC; RDW-CV 13.7 % (10.5-14.5); WBC 8.1 thou/uL (4.0-11.0)
[2021-01-14 06:17] LABS: ALBUMIN 3.1 g/dL (3.4-5.0); CALCIUM 7.9 mg/dL (8.5-10.1); CREATININE 1.1 mg/dL (0.6-1.3); MAGNESIUM 2.4 mg/dL (1.8-2.4); POTASSIUM 4.5 mmol/L (3.5-5.1); TOTAL BILIRUBIN 0.8 mg/dL (<0.1-1.0); TOTAL PROTEIN 5.9 g/dL (6.4-8.2)
[2021-01-14 06:24] LABS: PHOSPHORUS* 3.9 mg/dL (2.5-4.9)
[2021-01-14 06:37] LABS: PLATELET COUNT* 42 thou/uL (150-400)
[2021-01-14 08:05] LABS: BE -6.7 mmol/L (-2 to +3); PCO2 42.5 mmHg (35.0-45.0); PO2 76.2 mmHg (75.0-100.0)
[2021-01-14 08:07] LABS: pH 7.284 (7.340-7.450)
--- NOTE | 2021-01-14 09:25 | NUR ---
ICU Rounds: Patient remains ventilated at this time (FiO2 70% and Peep 10). Spoke to bulmaro Dave and updated on current plan of care. Tenzin stated he dropped DPOA paperwork for patient last week. Will check with nursing to ensure paperwork is scanned into the medical record. CM Dir will follow up with son to confirm reciept of paperwork. CM to continue to follow for safe dc planning
--- NOTE | 2021-01-14 10:11 | NUR ---
ASSUMED CARE OF PT 0700. UPON ASSESSMENT PTS BP NOTED TO BE INCREASING. AT THIS TIME SBP IS 190'S-LOW 200'S, RECTAL TEMP 94.5, BEAR HUGER AND WARMED BLANKET APPLIED, DR HUGHES NOTIFIED.
[2021-01-14 15:26] LABS: CREATININE 0.9 mg/dL (0.6-1.3); POTASSIUM 5.1 mmol/L (3.5-5.1)
[2021-01-14 16:54] LABS: BE 0.4 mmol/L (-2 to +3); PCO2 42.8 mmHg (35.0-45.0); PO2 62.4 mmHg (75.0-100.0); pH 7.393 (7.340-7.450)
[2021-01-15] VITALS (29 sets, daily range): BP systolic 98–292; BP diastolic 47–282
[2021-01-15 10:56] LABS: BE 1.4 mmol/L (-2 to +3); PCO2 48.3 mmHg (35.0-45.0); PO2 69.9 mmHg (75.0-100.0)
[2021-01-15 11:01] LABS: CALCIUM 8.2 mg/dL (8.5-10.1); CREATININE 1.1 mg/dL (0.6-1.3); MAGNESIUM 2.5 mg/dL (1.8-2.4); POTASSIUM 4.2 mmol/L (3.5-5.1)
[2021-01-15 11:10] LABS: ABSOLUTE LYMPHOCYTES 0.1 thou/uL (0.8-5.3); ABSOLUTE MONOCYTES 0.3 thou/uL (0.0-1.2); BASOPHILS 0.3 %; EOSINOPHILS 0.1 %; HEMATOCRIT 33.1 % (42.0-52.0); HEMOGLOBIN 11.7 gm/dL (14.0-18.0); LYMPHOCYTES 1.1 %; MCH 32.9 pg (26.0-34.0); MCHC 35.3 g/dL (28.0-37.0); MPV 9.5 fl. (7.2-11.1); NUCLEATED RBCS 0 /100WBC; PLATELET COUNT* 50 thou/uL (150-400); POLYS 94.5 %; RBC 3.56 mil/uL (4.50-6.00); RDW-CV 14.2 % (10.5-14.5); WBC 8.5 thou/uL (4.0-11.0)
--- NOTE | 2021-01-15 11:32 | NUR ---
ICU Rounds: Patients BP elevated overnight. Rectal temp difficult to obtain so bear hugger and warm blankets used overnight. Patient remains very anxious. Patient remains ventilated (FiO2 80% and Peep 10). Confirmed that DPOA paperwork is present on the chart for patient. Family has no questions for CM at this time.
--- NOTE | 2021-01-15 15:48 | 2DMMODE ---
[place] [address] 2 D/M-MODE ECHOCARDIOGRAM Name: SHANIQUA CAMACHO [facility] [place].#: [id number] Admission: 01/01/21 Attend Phys: Radha Larry MD Discharge: Date of : 62 Date of Service: 01/15/21 1547 Report #: [id number] THIS REPORT FOR: cc: Kush Mendoza Ghaison F. DO Blick, David R. MD [facility] ~ APPROVED REPORT Study performed: 01/15/2021 15:13:42 EXAM: Comprehensive 2D, Doppler, and color-flow Echocardiogram Patient Location: In-Patient Room #: 001 Status: routine BSA: 2.08 HR: 61 bpm BP: 113/64 mmHg Rhythm: NSR Other Information Study Quality: Good Indications Dyspnea covid 2D Dimensions IVSd: 9.59 (7-11mm) LVOT Diam: 19.82 (18-24mm) LVDd: 54.14 mm PWd: 8.85 (7-11mm) Ascending Ao: 33.69 (22-36mm) LVDs: 31.10 (25-40mm) Aortic Root: 30.03 mm Volumes Left Atrial Volume (Systole) LA ESV Index: 20.00 mL/m2 Aortic Valve AoV Peak Brock.: 1.65 m/s AO Peak Gr.: 10.89 mmHg LVOT Max P.95 mmHg AO Mean Gr.: 5.82 mmHg LVOT Mean P.06 mmHg LVOT Max V: 1.50 m/s AO V2 VTI: 31.27 cm LVOT Mean V: 0.91 m/s KELLY (VTI): 3.04 cm2 LVOT V1 VTI: 30.84 [place] [address] 2 D/M-MODE ECHOCARDIOGRAM Name: SHANIQUA CAMACHO Room: [address] IN [facility].#: [id number] Admission: 01/01/21 Attend Phys: Radha Larry MD Discharge: Date of : 62 Date of Service: 01/15/21 1547 Report #: [id number] Mitral Valve E/A Ratio: 1.23 MV Decel. Time: 267.28 ms MV E Max Brock.: 0.82 m/s MV PHT: 77.51 ms MVA (PHT): 2.84 cm2 TDI E/Lateral E': 5.86 E/Medial E': 7.45 Medial E' Brock.: 0.11 m/s Lateral E' Brock.: 0.14 m/s Pulmonary Valve PV Peak Brock.: 1.12 m/s PV Peak Gr.: 4.98 mmHg Tricuspid Valve RAP Estimate: 5.00 mmHg TR Peak Gr.: 24.99 mmHg RVSP: 30.00 mmHg PA Pressure: 30.00 mmHg Left Ventricle The left ventricle is normal size. There is normal LV segmental wall motion. There is normal left ventricular wall thickness. Left ventricular systolic function is normal. The left ventricular ejection fraction is within the normal range. LVEF is 55-60%. The left ventricular diastolic function is normal. Right Ventricle The right ventricle is normal size. The right ventricular systolic function is normal. Atria The left atrium size is normal. The right atrium size is normal. Aortic Valve The Aortic valve is sclerotic. Mild aortic regurgitation. There is no aortic valvular stenosis. Mitral Valve The mitral valve is normal in structure. Trace mitral regurgitation. No evidence of mitral valve stenosis. Tricuspid Valve The tricuspid valve is normal in [place] [address] 2 D/M-MODE ECHOCARDIOGRAM Name: DOUGSHANIQUA D Room: [address]#: [id number] Admission: 01/01/21 Attend Phys: Radha Larry MD Discharge: Date of : 62 Date of Service: 01/15/21 1547 Report #: [id number] regurgitation. estimated pa pressure 30 mm Hg Pulmonic Valve The pulmonary valve is normal in structure. There is no pulmonic valvular regurgitation. Great Vessels The aortic root is normal in size. IVC is normal in size and collapses >50% with inspiration. Pericardium There is no pericardial effusion. <Conclusion> LVEF is 55-60%. The Aortic valve is sclerotic. Mild aortic regurgitation. Trace mitral regurgitation. <ELECTRONICALLY SIGNED> By: Mustapha Chairez MD, [facility] 01/15/21 1547 1547 1547 Mustapha Chairez MD, FACC /INF
[2021-01-16] VITALS (33 sets, daily range): BP systolic 122–201; BP diastolic 66–102
[2021-01-16 05:35] LABS: ABSOLUTE LYMPHOCYTES 0.1 thou/uL (0.8-5.3); ABSOLUTE MONOCYTES 0.3 thou/uL (0.0-1.2); ABSOLUTE NEUTROPHILS 9.1 thou/uL (1.6-8.1); BASOPHILS 0.2 %; HEMATOCRIT 34.9 % (42.0-52.0); LYMPHOCYTES 1.1 %; MCH 32.1 pg (26.0-34.0); MCHC 34.5 g/dL (28.0-37.0); MCV 93.1 fL (80.0-100.0); MONOCYTES 2.9 %; MPV 9.4 fl. (7.2-11.1); NUCLEATED RBCS 0 /100WBC; PLATELET COUNT* 61 thou/uL (150-400); POLYS 95.8 %; RBC 3.74 mil/uL (4.50-6.00); RDW-CV 14.1 % (10.5-14.5); WBC 9.5 thou/uL (4.0-11.0)
[2021-01-16 05:52] LABS: APTT 20.9 Seconds (25.0-31.3); INR 1.4; PHOSPHORUS* 4.3 mg/dL (2.5-4.9); PROTIME 14.9 Seconds (9.20-11.50)
[2021-01-16 05:56] LABS: ALBUMIN 3.3 g/dL (3.4-5.0); CALCIUM 8.3 mg/dL (8.5-10.1); CREATININE 1.2 mg/dL (0.6-1.3); MAGNESIUM 2.6 mg/dL (1.8-2.4); POTASSIUM 4.8 mmol/L (3.5-5.1); TOTAL BILIRUBIN 0.9 mg/dL (<0.1-1.0); TOTAL PROTEIN 5.8 g/dL (6.4-8.2)
--- NOTE | 2021-01-16 07:00 | NUR ---
ASSUMED PATIENT CARE AT 1900. ASSESSMENTS COMPLETED CHARTED. CARDIAC MONITORING IN PLACE. HOURLY ROUNDING IN PLACE FOR PTIENT SAFETY. FALL PRECAUTIONS IN PLACE FOR PATIENT SAFETY. BED LOCKED AND IN LOWEST POSITION.
[2021-01-16 07:54] LABS: BE -0.5 mmol/L (-2 to +3); PCO2 43.5 mmHg (35.0-45.0); PO2 62.8 mmHg (75.0-100.0); pH 7.375 (7.340-7.450)
--- NOTE | 2021-01-16 09:32 | NUR ---
ICU Rounds: Patient remains on vent (FiO2 80% and Peep 10). Continued steroids, abx, propofol and fentanyl.
[2021-01-16 16:55] LABS: BE -1.7 mmol/L (-2 to +3); PCO2 45.4 mmHg (35.0-45.0); PO2 79.9 mmHg (75.0-100.0); pH 7.345 (7.340-7.450)
[2021-01-16 17:35] LABS: CALCIUM 8.1 mg/dL (8.5-10.1); CREATININE 1.3 mg/dL (0.6-1.3); MAGNESIUM 2.6 mg/dL (1.8-2.4); POTASSIUM 5.1 mmol/L (3.5-5.1)
[2021-01-17] VITALS (20 sets, daily range): BP systolic 122–184; BP diastolic 59–89
[2021-01-17 05:00] LABS: HEMATOCRIT 37.8 % (42.0-52.0); HEMOGLOBIN 13.2 gm/dL (14.0-18.0); MCH 32.4 pg (26.0-34.0); MCHC 34.9 g/dL (28.0-37.0); MCV 92.8 fL (80.0-100.0); NUCLEATED RBCS 0 /100WBC; PLATELET COUNT* 60 thou/uL (150-400); RBC 4.08 mil/uL (4.50-6.00); RDW-CV 13.8 % (10.5-14.5)
[2021-01-17 05:26] LABS: ALBUMIN 3.4 g/dL (3.4-5.0); CREATININE 1.1 mg/dL (0.6-1.3); MAGNESIUM 2.4 mg/dL (1.8-2.4); POTASSIUM 4.9 mmol/L (3.5-5.1); TOTAL BILIRUBIN 1.3 mg/dL (<0.1-1.0); TOTAL PROTEIN 6.3 g/dL (6.4-8.2)
[2021-01-17 05:52] LABS: PHOSPHORUS* 4.5 mg/dL (2.5-4.9)
[2021-01-17 07:43] LABS: ABSOLUTE LYMPHOCYTES 0.5 thou/uL (0.8-5.3); ABSOLUTE NEUTROPHILS 8.6 thou/uL (1.6-8.1); HYPOCHROMASIA Occasional; PLATELET ESTIMATE DECREASED
[2021-01-17 07:54] LABS: BE -0.7 mmol/L (-2 to +3); PCO2 42.1 mmHg (35.0-45.0); PO2 87.2 mmHg (75.0-100.0); pH 7.382 (7.340-7.450)
--- NOTE | 2021-01-17 12:28 | NUR ---
ICU Rounds: Patient remains on vent (FiO2 100% and Peep 10). Continued fentanyl, versed, precedex and steroids. Patient to remain in ICU through the weekend.
--- NOTE | 2021-01-17 13:55 | NUR ---
PER DR LITTLE, OK TO ATTEMPT TO TITRATE TF TO GOAL OF 40ML/HR TOLERATED. INCREASED TO 30ML/HR AT THIS TIME.
[2021-01-17 17:14] LABS: BE -1.4 mmol/L (-2 to +3); PCO2 36.6 mmHg (35.0-45.0); PO2 63.1 mmHg (75.0-100.0); pH 7.412 (7.340-7.450)
[2021-01-18] VITALS (21 sets, daily range): BP systolic 110–157; BP diastolic 62–80
[2021-01-18 05:26] LABS: ABSOLUTE LYMPHOCYTES 0.1 thou/uL (0.8-5.3); ABSOLUTE MONOCYTES 0.2 thou/uL (0.0-1.2); ABSOLUTE NEUTROPHILS 11.5 thou/uL (1.6-8.1); BASOPHILS 0.1 %; HEMATOCRIT 38.1 % (42.0-52.0); MCH 32.1 pg (26.0-34.0); MCHC 34.1 g/dL (28.0-37.0); MCV 94.1 fL (80.0-100.0); MONOCYTES 1.9 %; MPV 10.3 fl. (7.2-11.1); NUCLEATED RBCS 0 /100WBC; PLATELET COUNT* 59 thou/uL (150-400); RBC 4.05 mil/uL (4.50-6.00); WBC 11.9 thou/uL (4.0-11.0)
[2021-01-18 05:38] LABS: PHOSPHORUS* 4.3 mg/dL (2.5-4.9)
[2021-01-18 07:22] LABS: ALBUMIN 3.4 g/dL (3.4-5.0); CALCIUM 7.7 mg/dL (8.5-10.1); CREATININE 0.8 mg/dL (0.6-1.3); MAGNESIUM 2.2 mg/dL (1.8-2.4); POTASSIUM 4.6 mmol/L (3.5-5.1); TOTAL BILIRUBIN 1.4 mg/dL (<0.1-1.0); TOTAL PROTEIN 5.7 g/dL (6.4-8.2)
[2021-01-18 08:11] LABS: BE -1.9 mmol/L (-2 to +3); PCO2 42.1 mmHg (35.0-45.0); PO2 65.1 mmHg (75.0-100.0); pH 7.364 (7.340-7.450)
[2021-01-18 18:19] LABS: BE -2.8 mmol/L (-2 to +3); PCO2 45.1 mmHg (35.0-45.0)
[2021-01-18 18:24] LABS: PO2 51.9 mmHg (75.0-100.0)
[2021-01-19] VITALS (7 sets, daily range): BP systolic 40–181; BP diastolic 28–102
[2021-01-19 00:09] LABS: BE -0.7 mmol/L (-2 to +3); PCO2 43.8 mmHg (35.0-45.0)
[2021-01-19 00:10] LABS: PO2 44.7 mmHg (75.0-100.0)
[2021-01-19 01:48] LABS: HEMOGLOBIN 13.3 gm/dL (14.0-18.0); MCH 32.4 pg (26.0-34.0); MCV 92.6 fL (80.0-100.0); MPV 9.4 fl. (7.2-11.1); RBC 4.11 mil/uL (4.50-6.00); WBC 11.2 thou/uL (4.0-11.0)
[2021-01-19 02:13] LABS: CALCIUM 8.1 mg/dL (8.5-10.1); CREATININE 0.7 mg/dL (0.6-1.3); POTASSIUM 5.1 mmol/L (3.5-5.1)
[2021-01-19 02:17] LABS: MAGNESIUM 2.1 mg/dL (1.8-2.4); PHOSPHORUS* 3.9 mg/dL (2.5-4.9)
[2021-01-19 04:08] LABS: HEMATOCRIT 44.8 % (42.0-52.0)
[2021-01-19 04:10] LABS: HEMOGLOBIN 15.3 gm/dL (14.0-18.0)
--- NOTE | 2021-01-19 07:07 | NUR ---
APPROX 0230 PT O2 SAT 82-84 % ON VENT, PROVIDER NOTIFED AND ORDERS RECIEVED. NIMBEX STARTED AT APPROX 0300 PT RESPONDED TO MEDICATION POSITIVLY. APPROX 0320 PT HEART RATE ELEVATED TO 120-150. ATTEMEPTED TO CONTACT PROVIDER FOR ORDERS, WAS UNSUCCESSFULL IN CONTACATING ONCALL [facility] PROVIDER. PT CONTUNED TO DECLINE WITH BP DECLINING TO A MAP LESS THAN 60. LEVO WAS STARTED AND TITRATED TO 30MCG/MIN OVER 30 MIN, BP DID NOT IMPROVE. ATTEMPTED TO CONTACT PRINT MANAGER PLAYGROUND AIDE WAS UNSUCCESSFULL. 500 NS BOLUS WAS GIVEN FOR HYDRATION AND BP SUPPORT. APPROX 0420 [facility] PROVIDER CALLED WAS NOTIFIED OF SITUTATION AND GIVEN ORDERS. FAMILY WAS INFORMED OF PROGNOSIS AND FAMILY OPTED FOR WITHDRAW OF CARE. CARE WAS WITHDRAWN AND PT AT 0513. ATTEMPTS WERE MADE TO CONTACT [facility] AT 3925 #[phone] AT 4227 #[phone] AT 4179 #[phone]
== END 2021-01-19 05:13 | DRG 870 ==
LOC: M.ERS 20:24 → M.2W 01-01 00:06 → M.ICU 01-01 00:06 → M.TBA-ER 01-01 00:06 → M.2W 01-01 00:37 → M.ICU 01-02 12:50 → M.ORTHSURG 01-09 14:01 → M.ICU 01-12 14:00 → M.ORTHSURG 01-12 14:20 → M.ICU 01-17 17:32
PROVIDERS: Emergency Medicine; Internal Medicine; Internal Medicine Critical Care Medicine; Pediatrics; ADMIT Family Medicine; ATTEND Family Medicine
PROC: XW033E5 Introduction of Remdesivir Anti-infective into Peripheral Vein, Percutaneous Approach, New Technology Group 5 (ICD-10-PCS; principal; 2021-01-01)
PROC: XW13325 Transfusion of Convalescent Plasma (Nonautologous) into Peripheral Vein, Percutaneous Approach, New Technology Group 5 (ICD-10-PCS; 2021-01-02)
PROC: 5A09357 Assistance with Respiratory Ventilation, Less than 24 Consecutive Hours, Continuous Positive Airway Pressure (ICD-10-PCS; 2021-01-02)
PROC: 5A0935A Assistance with Respiratory Ventilation, Less than 24 Consecutive Hours, High Flow/Velocity Cannula (ICD-10-PCS; 2021-01-02)
PROC: 5A0935A Assistance with Respiratory Ventilation, Less than 24 Consecutive Hours, High Flow/Velocity Cannula (ICD-10-PCS; 2021-01-03)
PROC: 5A09357 Assistance with Respiratory Ventilation, Less than 24 Consecutive Hours, Continuous Positive Airway Pressure (ICD-10-PCS; 2021-01-03)
PROC: B548ZZA Ultrasonography of Superior Vena Cava, Guidance (ICD-10-PCS; 2021-01-03)
PROC: 02HV33Z Insertion of Infusion Device into Superior Vena Cava, Percutaneous Approach (ICD-10-PCS; 2021-01-03)
PROC: 5A0935A Assistance with Respiratory Ventilation, Less than 24 Consecutive Hours, High Flow/Velocity Cannula (ICD-10-PCS; 2021-01-04)
PROC: 5A09357 Assistance with Respiratory Ventilation, Less than 24 Consecutive Hours, Continuous Positive Airway Pressure (ICD-10-PCS; 2021-01-04)
PROC: 5A09357 Assistance with Respiratory Ventilation, Less than 24 Consecutive Hours, Continuous Positive Airway Pressure (ICD-10-PCS; 2021-01-05)
PROC: 5A0935A Assistance with Respiratory Ventilation, Less than 24 Consecutive Hours, High Flow/Velocity Cannula (ICD-10-PCS; 2021-01-05)
PROC: 5A0935A Assistance with Respiratory Ventilation, Less than 24 Consecutive Hours, High Flow/Velocity Cannula (ICD-10-PCS; 2021-01-06)
PROC: 5A09357 Assistance with Respiratory Ventilation, Less than 24 Consecutive Hours, Continuous Positive Airway Pressure (ICD-10-PCS; 2021-01-06)
PROC: 5A09357 Assistance with Respiratory Ventilation, Less than 24 Consecutive Hours, Continuous Positive Airway Pressure (ICD-10-PCS; 2021-01-07)
PROC: 5A0935A Assistance with Respiratory Ventilation, Less than 24 Consecutive Hours, High Flow/Velocity Cannula (ICD-10-PCS; 2021-01-07)
PROC: 5A09357 Assistance with Respiratory Ventilation, Less than 24 Consecutive Hours, Continuous Positive Airway Pressure (ICD-10-PCS; 2021-01-08)
PROC: 5A0935A Assistance with Respiratory Ventilation, Less than 24 Consecutive Hours, High Flow/Velocity Cannula (ICD-10-PCS; 2021-01-08)
PROC: 5A0935A Assistance with Respiratory Ventilation, Less than 24 Consecutive Hours, High Flow/Velocity Cannula (ICD-10-PCS; 2021-01-09)
PROC: 5A09357 Assistance with Respiratory Ventilation, Less than 24 Consecutive Hours, Continuous Positive Airway Pressure (ICD-10-PCS; 2021-01-09)
PROC: 5A0935A Assistance with Respiratory Ventilation, Less than 24 Consecutive Hours, High Flow/Velocity Cannula (ICD-10-PCS; 2021-01-10)
PROC: 5A09357 Assistance with Respiratory Ventilation, Less than 24 Consecutive Hours, Continuous Positive Airway Pressure (ICD-10-PCS; 2021-01-10)
PROC: 5A0935A Assistance with Respiratory Ventilation, Less than 24 Consecutive Hours, High Flow/Velocity Cannula (ICD-10-PCS; 2021-01-11)
PROC: 5A09357 Assistance with Respiratory Ventilation, Less than 24 Consecutive Hours, Continuous Positive Airway Pressure (ICD-10-PCS; 2021-01-11)
PROC: 0BH17EZ Insertion of Endotracheal Airway into Trachea, Via Natural or Artificial Opening (ICD-10-PCS; 2021-01-12)
PROC: 5A09357 Assistance with Respiratory Ventilation, Less than 24 Consecutive Hours, Continuous Positive Airway Pressure (ICD-10-PCS; 2021-01-12)
PROC: 5A1955Z Respiratory Ventilation, Greater than 96 Consecutive Hours (ICD-10-PCS; 2021-01-12)
PROC: 4A133B1 Monitoring of Arterial Pressure, Peripheral, Percutaneous Approach (ICD-10-PCS; 2021-01-16)
PROC: 03HY32Z Insertion of Monitoring Device into Upper Artery, Percutaneous Approach (ICD-10-PCS; 2021-01-16)
PROC: 4A133J1 Monitoring of Arterial Pulse, Peripheral, Percutaneous Approach (ICD-10-PCS; 2021-01-16)
DX: A41.89 Other specified sepsis (principal); U07.1 COVID-19; J12.82 Pneumonia due to coronavirus disease 2019; N17.0 Acute kidney failure with tubular necrosis; D65 Disseminated intravascular coagulation [defibrination syndrome]; J96.01 Acute respiratory failure with hypoxia; E86.0 Dehydration; F41.9 Anxiety disorder, unspecified; T70.29XA Other effects of high altitude, initial encounter; X58.XXXA Exposure to other specified factors, initial encounter; F32.9 Major depressive disorder, single episode, unspecified; G47.00 Insomnia, unspecified; Z90.49 Acquired absence of other specified parts of digestive tract; Z79.899 Other long term (current) drug therapy; Z72.89 Other problems related to lifestyle